=== PATIENT | female | born 1935 | race Caucasian/White ===

== ENCOUNTER → 2018-01-22 | Outpatient (CLI) | payer MEDICARE ==
[2018-01-25 00:06] LABS: Lyme Disease IgG/IgM Antibodie <0.91 ISR (0.00-0.90); Lyme Disease IgM Ab Quantitati <0.80 index (0.00-0.79)
== END ==
LOC: M WUC 14:15
DX: R21 Rash and other nonspecific skin eruption (principal)
CPT/HCPCS: 36415

== ENCOUNTER 2019-03-01 15:53 | Emergency (ER) | payer MEDICARE ==
[~2019-03-01] VITALS: Ht 160 cm; Wt 71.7 kg
[2019-03-01 16:21] LABS: BASO # 0.1 10^3/uL (0.0-0.2); EOS # 0.1 10^3/uL (0.0-0.50); EOS % 2.5 % (0.0-3.0); HEMATOCRIT 44.9 % (36.0-47.0); HEMOGLOBIN 14.7 g/dl (12.0-15.5); LYMPH # 1.8 10^3/uL (1.5-4.5); LYMPH % 34.6 % (24.0-44.0); MEAN CORPUSCULAR HEMOGLOBIN 31.9 pg (27.0-33.0); MEAN CORPUSCULAR HGB CONC 32.7 g/dl (32.0-36.5); MEAN CORPUSCULAR VOLUME 97.4 fl (80.0-96.0); MONO # 0.3 10^3/uL (0.0-0.8); MONO % 6.3 % (0.0-5.0); NEUTROPHILS # 2.8 10^3/uL (1.8-7.7); NEUTROPHILS % 55.4 % (36.0-66.0); PLATELET COUNT, AUTOMATED 193 10^3/uL (150-450); RED BLOOD COUNT 4.61 10^6/uL (4.00-5.40); WHITE BLOOD COUNT 5.1 10^3/uL (4.0-10.0)
--- NOTE | 2019-03-01 16:21 | REP ---
Clinical: Acute chest pain . Comparison: 03/12/2003 . Findings: The mediastinum and cardiac silhouette are stable and within normal limits for portable technique. The lung hinson demonstrate stable chronic changes without acute consolidation, effusion, or pneumothorax. Skeletal structures are intact. Impression: No acute cardiopulmonary process appreciated. Electronically Signed by Amor Krueger MD 03/01/2019 04:12 P
[2019-03-01 16:32] LABS: INR 0.9; PROTHROMBIN TIME 12.2 SECONDS (12.1-14.4)
[2019-03-01] MEDS ORDERED: GI COCKTAIL 50ML BTL(HYOSCYAMINE/MAALOX/LIDOCAINE VISCOUS)(1:3:1) PO ONE (17:00)
[2019-03-01 17:11] LABS: ALBUMIN 3.4 GM/DL (3.2-5.2); BILIRUBIN,DIRECT 0.1 MG/DL (0.0-0.2); BILIRUBIN,TOTAL 0.3 MG/DL (0.2-1.0); CALCIUM LEVEL 8.8 MG/DL (8.8-10.2); CREATININE FOR GFR 1.24 MG/DL (0.55-1.30); GLOMERULAR FILTRATION RATE 43.8 (>32); MB/CK RELATIVE INDEX 3.02 (< OR =4); POTASSIUM SERUM 5.4 MEQ/L (3.5-5.1); THYROID STIMULATING HORMONE 1.7 uIU/ML (0.358-3.740); TOTAL PROTEIN 6.7 GM/DL (6.4-8.2); TROPONIN I 0.14 NG/ML (< 0.10)
[2019-03-01] MEDS: NITROGLYCERIN 0.4 MG SUBL TABLET SL PRN ×3 (17:36→18:30)
[2019-03-01] MEDS ORDERED: ISOVUE-370 76% 100ML VIAL (Q9967) As Ordered ONE (17:56)
--- NOTE | 2019-03-01 18:08 | ECGEPIP ---
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
[2019-03-01] MEDS ORDERED: OMEP10CASR PO (18:16)
[2019-03-01] MEDS ORDERED: BYST10TA2 PO (18:16)
[2019-03-01] MEDS ORDERED: LOSA25TA14 PO (18:16)
[2019-03-01] MEDS ORDERED: ONDANSETRON 4MG/2ML VIAL (J2405) IV ONE (18:30)
[2019-03-01] MEDS ORDERED: MORPHINE 2 MG/ML 1ML SYRINGE (J2270) IV PRN (18:30)
[2019-03-01] MEDS ORDERED: HEPARIN SOD (PORCINE) 5000 UNITS/ML VIAL IV ONE (18:45)
[2019-03-01] MEDS ORDERED: NITROGLYCERIN 2% OINT 1 GM *U/D* PKT TOP ONE (18:45)
[2019-03-01] MEDS ORDERED: CLOPIDOGREL 300 MG TAB (PLAVIX) PO ONE (18:45)
[2019-03-01 18:46] VITALS: BP 153/88
[2019-03-01] MEDS ORDERED: HEPARIN DRIP 25,000 UNITS in APPROPRIATE DILUENT 1 EA IV SCH (18:50)
[2019-03-01 19:06] VITALS: BP 158/80
--- NOTE | 2019-03-01 19:11 | REPVR ---
EXAM: CT Angiography Chest With Contrast EXAM DATE/TIME: 03/01/2019 5:55 PM CLINICAL HISTORY: 83 years old, female; Pain; Chest pain; Additional info: Cp TECHNIQUE: Imaging protocol: Axial computed tomographic angiography images of the chest with intravenous contrast using CT angiography protocol. Coronal and sagittal reformatted images were created and reviewed. 3D rendering: MIP reconstructed images were created and reviewed. Radiation optimization: All CT scans at this facility use at least one of these dose optimization techniques: automated exposure control; mA and/or kV adjustment per patient size (includes targeted exams where dose is matched to clinical indication); or iterative reconstruction. Contrast material: ISOISOVUE 370 Contrast volume: 100 ml Contrast route: IV COMPARISON: CR PORTABLE CHEST X-RAY 03/01/2019 4:06 PM FINDINGS: Pulmonary arteries: No evidence of pulmonary emboli. Aorta: No evidence of thoracic aortic aneurysm or dissection. Lungs: There is centrilobular emphysema more severe in the upper lobes. There is a right upper lobe calcified granuloma. No consolidation. Pleural space: Normal. No pneumothorax. No pleural effusion. Heart: There is mild cardiomegaly. There are coronary artery calcifications. Lymph nodes: Unremarkable. No enlarged lymph nodes. Bones/joints: Unremarkable. No acute fracture. Soft tissues: Unremarkable. IMPRESSION: 1. No pulmonary emboli. 2. COPD. No acute findings. 3. Mild cardiomegaly and coronary artery calcifications. Electronically signed by: Nikolay Hays On 03/01/2019 19:11:37 PM
[2019-03-01 19:22] LABS: MB/CK RELATIVE INDEX 6.3 (< OR =4); TROPONIN I 0.74 NG/ML (< 0.10)
--- NOTE | 2019-03-02 21:29 | ECGEPIP ---
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
== END 2019-03-01 19:11 | disposition short-term general hospital (02) ==
LOC: M ED 15:53 → EDBD 15:53 → M ED 19:11
DX: I24.9 Acute ischemic heart disease, unspecified (principal); I10 Essential (primary) hypertension; Z79.899 Other long term (current) drug therapy
CPT/HCPCS: 71045; 71275; 80048; 80076; 82550; 82553; 83880; 84443; 84484; 85025; 85610; 93005; 93041; 94760; 96374; 96375; 96376; 99291; J2270; J2405; Q9967

== ENCOUNTER → 2019-03-25 | Outpatient (REF) | payer MEDICARE ==
[~2019-03-25] MED LIST: BYST10TA2 PO; LOSA25TA14 PO; OMEP10CASR PO
[2019-03-25 21:19] LABS: BILIRUBIN,DIRECT 0.2 MG/DL (0.0-0.2); BILIRUBIN,TOTAL 0.5 MG/DL (0.2-1.0); CALCIUM LEVEL 8.3 MG/DL (8.8-10.2); CREATININE FOR GFR 1.95 MG/DL (0.55-1.30); TOTAL PROTEIN 6.2 GM/DL (6.4-8.2)
== END ==
LOC: M LAB REF 19:40
PROVIDERS: ATTEND Nurse Practitioner
DX: R79.89 Other specified abnormal findings of blood chemistry (principal)

== ENCOUNTER → 2019-04-10 | Outpatient (REF) | payer MEDICARE ==
[2019-04-10 14:31] LABS: FERRITIN 396 NG/ML (8-252); FOLATE > 24.0 NG/ML; IRON (FE) 52 UG/DL (50-170); PERCENT SATURATION 16.4 % (13.2-45.0); TOTAL IRON BINDING CAPACITY 318 UG/DL (250-450); VITAMIN B12 LEVEL 459 PG/ML
== END ==
LOC: M LAB REF 13:16
PROVIDERS: ATTEND Internal Medicine Nephrology
DX: D64.9 Anemia, unspecified (principal)

== ENCOUNTER → 2019-06-15 | Outpatient (CLI) | payer MEDICARE ==
[2019-06-15 13:16] LABS: BASO # 0.1 10^3/uL (0.0-0.2); BASO % 0.3 % (0.0-1.0); EOS # 0.1 10^3/uL (0.0-0.50); EOS % 0.5 % (0.0-3.0); HEMATOCRIT 44.8 % (36.0-47.0); HEMOGLOBIN 14.5 g/dl (12.0-15.5); LYMPH # 2.5 10^3/uL (1.5-4.5); MEAN CORPUSCULAR HEMOGLOBIN 29.2 pg (27.0-33.0); MEAN CORPUSCULAR HGB CONC 32.4 g/dl (32.0-36.5); MEAN CORPUSCULAR VOLUME 90.3 fl (80.0-96.0); MONO % 6.8 % (0.0-5.0); PLATELET COUNT, AUTOMATED 264 10^3/uL (150-450); RED BLOOD COUNT 4.96 10^6/uL (4.00-5.40); WHITE BLOOD COUNT 14.7 10^3/uL (4.0-10.0)
[2019-06-15 13:54] LABS: ALBUMIN 4.2 GM/DL (3.2-5.2); BILIRUBIN,TOTAL 0.7 MG/DL (0.2-1.0); CREATININE FOR GFR 2.09 MG/DL (0.55-1.30); POTASSIUM SERUM 4.2 MEQ/L (3.5-5.1); TOTAL PROTEIN 8.2 GM/DL (6.4-8.2)
== END ==
LOC: M WUC 10:47
PROVIDERS: ATTEND Physician Assistant
DX: A09 Infectious gastroenteritis and colitis, unspecified (principal)

== ENCOUNTER 2020-01-24 22:25 | Emergency (ER) | payer MEDICARE ==
[~2020-01-24] VITALS: Ht 160 cm; Wt 61.1 kg
[2020-01-24 22:27] VITALS: BP 162/80
[2020-01-24] MEDS ORDERED: CLOP75TA2 (22:36)
[2020-01-24] MEDS ORDERED: SUCR1TAB56 (22:36)
[2020-01-24] MEDS ORDERED: AMLO2.5T3 (22:36)
[2020-01-24] MEDS ORDERED: BUSP5TA (22:36)
[2020-01-24] MEDS ORDERED: FURO40TA2 (22:36)
[2020-01-24] MEDS ORDERED: ATOR40TA75 (22:36)
[2020-01-24] MEDS ORDERED: PANT40TA3 (22:36)
[2020-01-24] MEDS ORDERED: ESTRADIOL (22:36)
[2020-01-24] MEDS ORDERED: POTA1TAB23 (22:36)
[2020-01-24] MEDS ORDERED: METO1TAB87 (22:36)
[2020-01-24] MEDS ORDERED: MIRA3350 PO (23:23)
[2020-01-24] MEDS ORDERED: MIRALAX *UNIT DOSE* 17GM PACKET PO STA (23:35)
== END 2020-01-24 23:51 | disposition home or self-care (01) ==
LOC: M ED 22:25
DX: K56.41 Fecal impaction (principal); I10 Essential (primary) hypertension; J44.9 Chronic obstructive pulmonary disease, unspecified; Z79.899 Other long term (current) drug therapy; Z87.891 Personal history of nicotine dependence

== ENCOUNTER 2020-04-11 03:50 | Inpatient (IN) | payer MEDICARE ==
[~2020-04-11] VITALS: Ht 160 cm; Wt 67.7 kg
[~2020-04-11 03:50] MED LIST changes: +AMLO2.5T3 PO; +ATOR40TA75 PO; +BUSP5TA PO; +CLOP75TA2 PO; +ESTRADIOL; +FURO40TA2 PO; +METO1TAB87; +MIRA3350 PO; +PANT40TA3 PO; +POTA1TAB23 PO; +SUCR1TAB56 PO
[2020-04-11] MEDS ORDERED: METOCLOPRAMIDE INJ 10MG/2ML VIAL (J2765 PER 1) IV ONE (05:15)
[2020-04-11] MEDS ORDERED: MORPHINE 4 MG/ML 1ML VIAL/SYRINGE (J2270) IV ONE ×2 (05:15→06:00)
[2020-04-11] MEDS ORDERED: NS 500 ML IV ONE ×2 (05:15→06:15)
[2020-04-11 05:29] LABS: HEMATOCRIT 38.4 % (36.0-47.0); HEMOGLOBIN 13.4 g/dl (12.0-15.5); MEAN CORPUSCULAR HEMOGLOBIN 30.4 pg (27.0-33.0); MEAN CORPUSCULAR HGB CONC 34.9 g/dl (32.0-36.5); MEAN CORPUSCULAR VOLUME 87.1 fl (80.0-96.0); PLATELET COUNT, AUTOMATED 198 10^3/uL (150-450); RED BLOOD COUNT 4.41 10^6/uL (4.00-5.40); WHITE BLOOD COUNT 6.5 10^3/uL (4.0-10.0)
[2020-04-11 05:40] LABS: BASOPHILS 1 % (0-1); EOSINOPHILS 4 % (0-3); LYMPHOCYTES 15 % (16-44); MONOCYTES 6 % (0-5); NEUTROPHILS 74 % (28-66); PLATELET ESTIMATE NORMAL (NORMAL)
[2020-04-11 05:41] LABS: ANISOCYTOSIS 1+; POLYCHROMASIA 1+
--- NOTE | 2020-04-11 05:55 | REPVR ---
PROCEDURE INFORMATION: Exam: CT Abdomen And Pelvis Without Contrast Exam date and time: 04/11/2020 5:28 AM Age: 84 years old Clinical indication: Abdominal pain; Additional info: R colic TECHNIQUE: Imaging protocol: Computed tomography of the abdomen and pelvis without contrast. Radiation optimization: All CT scans at this facility use at least one of these dose optimization techniques: automated exposure control; mA and/or kV adjustment per patient size (includes targeted exams where dose is matched to clinical indication); or iterative reconstruction. COMPARISON: No relevant prior studies available. FINDINGS: Heart: There is calcification the mitral annulus. Lungs: There is a 9 mm nodule in the left lung base on axial image 20. Another nodule measuring 4-5 mm seen in the left lung base on axial image 20. There is a 5 mm right lower lobe lung nodule on axial image 3. Changes seen in the right and left lung bases suggestive of chronic interstitial lung changes. Liver: The liver is nodular in contour. The liver is studded with innumerable hypodense masses. Gallbladder and bile ducts: The patient is status post cholecystectomy. Pancreas: Normal. No ductal dilation. Spleen: Normal. No splenomegaly. Adrenals: Normal. No mass. Kidneys and ureters: Multiple right renal stones seen the largest measures around 3-4 mm. There is no ureteral stones or hydronephrosis. Stomach and bowel: There is severe sigmoid colon diverticulosis. Appendix: No evidence of appendicitis. Intraperitoneal space: Unremarkable. No free air. No significant fluid collection. Vasculature: There is severe calcification of the coronary arteries. There is severe aortic and iliac mural calcifications. Lymph nodes: Unremarkable. No enlarged lymph nodes. Bladder: Unremarkable as visualized. Reproductive: The patient is status post hysterectomy. There is no adnexal mass. Bones/joints: There is lumbar spine scoliosis with diffuse disc degenerative changes. Soft tissues: Unremarkable. IMPRESSION: 1. Liver studded with diffuse innumerable hypodense masses suggestive of metastatic disease. Alternatively multifocal primary hepatic neoplasm can have a similar appearance. Nodular hepatic contour could be due to the underlying neoplastic processes or due to an element of cirrhosis. 2. Nonobstructing right nephrolithiasis. 3. Severe sigmoid colon diverticulosis. 4. Right and left lower lobe lung nodules as described above the largest measuring 9 mm in the left lung base likely metastatic. 5. Chronic interstitial lung changes in the partially imaged lung bases. Electronically signed by: Dajuan Dobson On 04/11/2020 05:54:46 AM
[2020-04-11 05:58] LABS: ALBUMIN 3.2 GM/DL (3.2-5.2); ALT/SGPT 56 U/L (12-78); BILIRUBIN,DIRECT 0.6 MG/DL (0.0-0.2); BLOOD UREA NITROGEN 15 MG/DL (7-18); CALCIUM LEVEL 8.3 MG/DL (8.8-10.2); CARBON DIOXIDE LEVEL 23 MEQ/L (21-32); CHLORIDE LEVEL 86 MEQ/L (98-107); CREATININE FOR GFR 0.94 MG/DL (0.55-1.30); GLOMERULAR FILTRATION RATE > 60.0 (>32); GLUCOSE, FASTING 91 MG/DL (70-100); LIPASE 506 U/L (73-393); POTASSIUM SERUM 3.7 MEQ/L (3.5-5.1); SODIUM LEVEL 120 MEQ/L (136-145)
[2020-04-11] MEDS ORDERED: ESTR1TAB PO (06:36)
[2020-04-11] MEDS ORDERED: METO1TAB7 PO (06:36)
[2020-04-11] MEDS ORDERED: MIRA3350 PO (06:37)
[2020-04-11] MEDS ORDERED: METOCLOPRAMIDE INJ 10MG/2ML VIAL (J2765 PER 1) IV PRN (08:00)
[2020-04-11] MEDS: ONDANSETRON 4MG/2ML VIAL IV PRN ×4 (08:00→22:19)
[2020-04-11] MEDS: NS 1,000 ML IV SCH ×2 (08:00→20:08)
[2020-04-11 08:07] LABS: APPEARANCE, URINE CLEAR (CLEAR); BACTERIA, URINE AUTO 1+ (NEGATIVE); BILIRUBIN, URINE AUTO NEGATIVE (NEGATIVE); BLOOD, URINE BLOOD NEGATIVE (NEGATIVE); COLOR, URINE YELLOW (YELLOW); GLUCOSE, URINE (UA) AUTO NEGATIVE (NEGATIVE); KETONE, URINE AUTO TRACE mg/dL (NEGATIVE); LEUKOCYTE ESTERASE, URINE AUTO NEGATIVE (NEGATIVE); NITRITE, URINE AUTO NEGATIVE (NEGATIVE); PROTEIN, URINE AUTO 1+ mg/dL (NEGATIVE); RBC, URINE AUTO 1 /HPF (0-3); SQUAMOUS EPITHELIAL CELL UR AU 1 /HPF (0-6); UROBILINOGEN, URINE AUTO 0.2 mg/dL (0.0-2.0); WBC, URINE AUTO 1 /HPF (0-3)
[2020-04-11] MEDS ORDERED: LOSARTAN 25 MG TAB PO SCH (09:00)
[2020-04-11] MEDS ORDERED: NEBIVOLOL 5 MG TAB (BYSTOLIC) PO SCH (09:00)
[2020-04-11] MEDS: MORPHINE 4 MG/ML 1ML VIAL/SYRINGE (J2270) IV PRN ×2 (09:45→17:46)
--- NOTE | 2020-04-11 09:48 | REP ---
PORTABLE CHEST X-RAY: SINGLE VIEW. HISTORY: Preadmission chest x-ray. COMPARISON CHEST X-RAY: March 01, 2019 FINDINGS: In the interval since the prior study, the patient has undergone median sternotomy. Monitoring electrodes are present along with oxygen delivery tubing. There is a mild interstitial fibrosis pattern seen in the left base and right mid lung zone, essentially unchanged. No acute infiltrate is seen. No pleural effusion is noted. IMPRESSION: Mildly prominent interstitial markings. Prior sternotomy. Otherwise no acute disease. Electronically Signed by Hero Butterfield MD 04/11/2020 10:25 A
--- NOTE | 2020-04-11 09:58 | HPEPDOC ---
General Date of Admission April 11, 2020 at 07:47 Date of Service: April 11, 2020 Chief Complaint The patient is a 84-year-old female admitted with a reason for visit of Hyponatremia,Intractable Vomiting. Source: Patient Exam Limitations: No limitations Timing/Duration: Other (unsure) Severity: Other (not applicable) Associated Symptoms: Other (, weight loss) History of Present Illness This is a 84 years old white female with past medical history of hypertension, back pain, has developed persistent vomiting since last night, unable to keep anything down and she came to ER for for further workup. On further interview, patient also claims that she lost 8-10 pounds in last month and has not been feeling well, generalized tiredness and fatigue and malaise since last few months. Denies any chest pain, abdominal pain, diarrhea, fever, etc. Home Medications Scheduled Amlodipine Besylate (Amlodipine Besylate) 2.5 Mg Tablet, 2.5 MG PO QHS, (Reported) Atorvastatin Calcium (Atorvastatin Calcium) 40 Mg Tablet, 40 MG PO DAILY, (Reported) Buspirone HCl (Buspirone HCl) 5 Mg Tablet, 5 MG PO BID, (Reported) Clopidogrel Bisulfate (Clopidogrel) 75 Mg Tablet, 75 MG PO DAILY, (Reported) Estradiol (Estradiol) 1 Mg Tablet, 0.5 MG PO DAILY, (Reported) Furosemide (Furosemide) 40 Mg Tablet, 40 MG PO DAILY, (Reported) Losartan Potassium (Losartan Potassium) 25 Mg Tab, 25 MG PO DAILY, (Reported) Metoprolol Succinate (Metoprolol Succinate) 50 Mg Tab.er.24h, 50 MG PO DAILY, (Reported) Nebivolol HCl (Bystolic) 10 Mg Tab, 10 MG PO DAILY, (Reported) LAST FILL 2019 Omeprazole (Omeprazole) 10 Mg Capcr, 10 MG PO DAILY, (Reported) LAST FILL 2019 Pantoprazole Sodium (Pantoprazole Sodium) 40 Mg Tablet.dr, 40 MG PO DAILY, (Reported) LAST FILLED 11/2019 Potassium Chloride (Potassium Chloride) 10 Meq Tablet.er, 10 MEQ PO BID, (Reported) Sucralfate (Sucralfate) 1 Gm Tablet, 1 GM PO BID, (Reported) Scheduled PRN Polyethylene Glycol 3350 (Miralax) 119 Gm Powder, 17 GM PO DAILY PRN for CONSTIPATION, (Reported) Allergies Coded Allergies: No Known Allergies (Verified , 03/01/19) Past Medical History Medical History Hypertension, back pain Surgical History Hysterectomy with BSO, cholecystectomy, trigger finger release, sinus surgery, D&C, , cardiac ablation, rotator cuff repair Family History Father at age of 54 with a throat cancer. Mother age of 84 with CVA, hypertension, CA and diabetes mellitus, one sister has breast cancer and she at the age of 78 Social History * Smoker: former Smoker Alcohol: Denies Drugs: denies A-FIB/CHADSVASC A-FIB History Current/History of A-Fib/PAF?: No Review of Systems Constitutional: Reports: Weakness, Fatigue, Other (, weight loss) Eyes: Denies: Pain, Vision change, Conjunctivae inflammation, Eyelid inflammation, Redness, Other ENT: Denies: Head Aches, Ear Pain, Dysphagia, Sinus Congestion, Post Nasal Drip, Sore Throat, Epistaxis, Other Symptoms Skin: Denies: Rash, Lesions, Jaundice, Bruising, Itching, Dry, Breakdown, Nail Changes, Other Pulmonary: Denies: Dyspnea, Cough, Pleuritic Chest Pain, Other Symptoms Cardiovascular: Denies: Chest Pain, Palpitations, Orthopnea, Paroxysmal Noc. Dyspnea, Edema, Lt Headedness, Other Symptoms Gastrointestinal: Reports: Vomiting Genitourinary: Denies: Dysuria, Frequency, Incontinence, Hematuria, Retention, Other Symptoms Hematologic: Denies: Bruising, Bleeding Excessively, Petecchia, Purpura, Enlarged Lymph Nodes, Other Hematologic Endocrine: Denies: Polydipsia, Polyphagia, Polyuria, Heat Intolerance, Cold Intolerance, Other Endocrine Sx Musculoskeletal: Denies: Neck Pain, Back Pain, Shoulder Pain, Arm Pain, Hand Pain, Leg Pain, Foot Pain, Joint Pain, Muscle Pain, Spasms, Other Symptoms Neurological: Denies: Weakness, Numbness, Incoordination, Change in speech, C onfusion, Seizures, Other Symptoms Psych: Denies: Mood Normal, Anxiety, Depression, Memory Issues, Thoughts of Self Harm, Anger, Thoughts of Harming Other, Other Psych Physical Examination General Exam: Positive: Alert, Cooperative Eye Exam: Positive: PERRLA, Conjunctiva & lids normal ENT Exam: Positive: Atraumatic, Mucous membr. moist/pink Neck Exam: Positive: Supple Chest Exam: Positive: Clear to auscultation, Normal air movement Heart Exam: Positive: Rate Normal, Normal S1, Normal S2 Abdomen Exam: Positive: Normal bowel sounds Extremity Exam: Positive: Normal pulses Skin Exam: Positive: Nl turgor and temperature Neuro Exam: Positive: Strength at 5/5 X4 ext, Cranial Nerves 3-12 NL Psych Exam: Positive: Mood NL, Oriented x 3 Vital Signs Vital Signs Date Time Temp Pulse Resp B/P (MAP) Pulse Ox O2 Delivery O2 Flow Rate FiO2 04/11/20 09:15 75 20 135/68 (90) 99 Nasal Cannula 2.0 04/11/20 04:01 96.7 Laboratory Data Labs 24H Laboratory Tests 2 04/11/20 05:17: Neutrophils (%) (Auto) , Nucleated Red Blood Cells % (auto) 0.0, Neutrophils 74H, Lymphocytes (Manual) 15L, Monocytes (Manual) 6H, Eosinophils (Manual) 4H, Basophils (Manual) 1, Polychromasia 1+, Anisocytosis 1+, Platelet Estimate NORMAL, Anion Gap 11, Glomerular Filtration Rate > 60.0, Calcium Level 8.3L, Total Bilirubin 1.0, Direct Bilirubin 0.6H, Aspartate Amino Transf (AST/SGOT) 81H, Alanine Aminotransferase (ALT/SGPT) 56, Alkaline Phosphatase 258H, Total Protein 7.0, Albumin 3.2, Albumin/Globulin Ratio 0.8L, Lipase 506H 04/11/20 07:52: Urine Color YELLOW, Urine Appearance CLEAR, Urine pH 7.0, Urine Specific [place] 1.010, Urine Protein 1+H, Urine Glucose (Auto)(UA) NEGATIVE, Urine Ketones (Auto) TRACEH, Urine Blood NEGATIVE, Urine Nitrite NEGATIVE, Urine Bilirubin NEGATIVE, Urine Urobilinogen 0.2, Urine Leukocyte Esterase (Auto) NEGATIVE, Urine WBC (Auto) 1, Urine RBC (Auto) 1, Urine Hyaline Casts (Auto) 0, Urine Bacteria (Auto) 1+H, Urine Squamous Epithelial Cells 1, Urine Sperm (Auto) CBC/BMP Laboratory Tests 04/11/20 05:17 Problems (1) Metastatic neoplastic disease Status: Acute Problem Text: 74 years old white female past medical history of hypertension, arthritis, presented with chief complaint of a persistent vomiting since last night but patient has also explained that she lost 8-10 pounds in last 1 month and feeling tired, fatigue. CT of the abdomen and pelvis shows liver studded with innumerable hypodense masses, most likely metastatic liver disease. Also, lung metastases were observed. Patient also has a nonobstructing right kidney stones CBC shows hemoglobin of 13.4, WBC, platelets are normal. Sodium is low with 120, BUN 15, creatinine 0.94, but all other electrolytes are normal. ALP 258 and lipase 506 Admit patient to [facility] floor with telemetry IV fluid normal saline at 70 mL per hour Metoclopramide and Zofran when necessary for nausea, vomiting Morphine sulfate for pain management Continue all home meds except Lasix IR consult called for possible liver biopsy to establish origin of the tissue made versus multifocal hepatic carcinoma . We will also request an oncology consult with Dr. 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 Patient is nothing by mouth (3) HTN (hypertension) Status: Chronic Problem Text: Continue all home meds except Lasix Keep in close eye on vital signs and adjust meds accordingly Plan / VTE VTE Prophylaxis Ordered?: Yes BETH FLORES MD April 11, 2020 09:58
[2020-04-11 10:35] VITALS: BP 116/82
[2020-04-11] MEDS: POTASSIUM CHLORIDE 10 MEQ SR TABLET PO SCH ×2 (10:59→20:51)
[2020-04-11] MEDS: ATORVASTATIN 20 MG TAB PO SCH (10:59)
[2020-04-11] MEDS: PANTOPRAZOLE 40MG TAB (PROTONIX) PO SCH (10:59)
[2020-04-11] MEDS: CLOPIDOGREL 75 MG TAB PO SCH ×2 (10:59→11:00)
[2020-04-11] MEDS: SUCRALFATE 1 GM TAB PO SCH ×2 (10:59→20:51)
[2020-04-11] MEDS: ESTRADIOL PO SCH (12:51)
[2020-04-11] MEDS: busPIRone 5 MG TAB PO SCH ×2 (12:51→20:51)
[2020-04-11] MEDS: METOPROLOL SUCC (TopROL XL) 50MG **XL** TAB PO SCH (12:53)
[2020-04-11 14:00] VITALS: BP 120/80
[2020-04-11] MEDS ORDERED: LIDOCAINE 1% MDV 20ML VIAL As Ordered ONE (14:23)
[2020-04-11] MEDS ORDERED: ALPRAZolam 0.25 MG TAB PO ONE (14:30)
[2020-04-11 15:45] VITALS: BP 125/83
[2020-04-11 16:30] VITALS: BP 130/82
[2020-04-11 17:00] VITALS: BP 127/78
[2020-04-11] MEDS: ACETAMINOPHEN TAB 650MG DOSE (2X325MG) PO PRN (17:12)
--- NOTE | 2020-04-11 19:15 | REP ---
ULTRASOUND-GUIDED LIVER BIOPSY The procedure was performed under the direct supervision of Dr. Rosa. The patient has a history of diffuse innumerable hypodense masses suggestive of metastatic disease seen on a previous CT scan performed earlier today. The risks and benefits of the procedure were explained to the patient and informed consent was obtained. A lesion in the left lobe of the liver was localized using ultrasound guidance. The skin was prepped and draped in a sterile fashion. 1% lidocaine was used as a local anesthetic. Using ultrasound guidance and 19/20 gauge coaxial needle biopsy system was inserted and advanced into the lesion. Six core biopsy samples were obtained and sent to lab. The patient tolerated the procedure well and there were no immediate complications. After the appropriate amount of monitored convalescence the patient was discharged from the department. Electronically Signed by GRUPO Gaston 04/11/2020 05:42 P Electronically Signed by Atul Rosa MD 04/11/2020 07:05 P
--- NOTE | 2020-04-11 20:23 | CR.PDOC ---
General Date of Consultation: April 11, 2020 Referring Provider: BETH FLORES MD Attending Physician: BETH FLORES MD Consultation DIAGNOSIS: 1. Liver masses - CT abd/pelvis wo contrast, 04/11/20: Liver studded with diffuse innumerable hypodense masses suggestive of metastatic disease. Nonobstructing right nephrolithiasis. Severe sigmoid colon diverticulosis. Right and left lower lobe lung nodules with the largest measuring 9 mm in the left lung base. Chronic interstitial lung changes in the partially imaged lung bases. REASON FOR CONSULTATION/CHIEF COMPLAINT: Liver metastasis HISTORY OF PRESENT ILLNESS: Ms. Saavedra is a pleasant 84-year-old female who presented to [facility] emergency department earlier today with worsening right upper mauro drant abdominal pain. The patient has a history of nephrolithiasis and I believe was to come in this Saturday, 04/15 for lithotripsy. She thought abdominal pain is secondary to her kidney stone. She has had vomiting since last night. Though she reported an 8-10 pound weight loss in the last month to Dr. Flores, she denies weight loss to me. She states her appetite is the same. She has been having a little nausea and vomiting. She denies bright red blood per rectum, melena, or hematuria. She states she had a colonoscopy about 1-2 years ago underwent which was within normal limits. She states she is up-to-date with regards to her mammogram. She denies confusion or seizure activity. However, upon talking about CT abdomen/pelvis results, she acts as though she is unaware of the results. The patient's daughter and son were called later after visiting with the patient. They do note there mother has been more forgetful recently. ALLERGIES: Please see below. HOME MEDICATIONS: Please see below. PAST MEDICAL HISTORY: 1. Hypertension 2. Chronic lower back pain PAST SURGICAL HISTORY: Per chart review: 1. Hysterectomy with bilateral salpingo-oophorectomy 2. Cholecystectomy 3. Trigger finger release 4. Sinus surgery 5. D&C 6. 7. Cardiac ablation 8. Rotator cuff repair FAMILY HISTORY: Per chart review: Father: at age 54 with throat cancer Mother: at age 84 with CVA. Also treated for hypertension, myocardial infarction, and diabetes mellitus. Siblings: One sister had breast cancer and at the age of 78. SOCIAL HISTORY: Marital status and/or living arrangements: She lives alone but has a daughter and son that live in [place], [place]. Leeann can be reached at [phone]. Tobacco use: She quit smoking over 20 years ago. She previously smoked for 15-16 years. ETOH: Denies Illicit drug use: Denies IV drug use: Denies REVIEW OF SYSTEMS: Constitutional: Reports: Weakness, Fatigue, denies weight loss Eyes: Denies: Pain, Vision change, Conjunctivae inflammation, Eyelid inflammation, Redness, Other ENT: Denies: Head Aches, Ear Pain, Dysphagia, Sinus Congestion, Post Nasal Drip, Sore Throat, Epistaxis, Other Symptoms Skin: Denies: Rash, Lesions, Jaundice, Bruising, Itching, Dry, Breakdown, Nail Changes, Other Pulmonary: Denies: Dyspnea, Cough, Pleuritic Chest Pain, Other Symptoms Cardiovascular: Denies: Chest Pain, Palpitations, Orthopnea, Paroxysmal Noc. Dyspnea, Edema, Lt Headedness, Other Symptoms Gastrointestinal: Reports: Vomiting Genitourinary: Denies: Dysuria, Frequency, Incontinence, Hematuria, Retention, Other Symptoms Hematologic: Denies: Bruising, Bleeding Excessively, Petecchia, Purpura, Enlarged Lymph Nodes, Other Hematologic Endocrine: Denies: Polydipsia, Polyphagia, Polyuria, Heat Intolerance, Cold Intolerance, Other Endocrine Sx Musculoskeletal: Denies: Neck Pain, Back Pain, Shoulder Pain, Arm Pain, Hand Pain, Leg Pain, Foot Pain, Joint Pain, Muscle Pain, Spasms, Other Symptoms Neurological: Denies: Weakness, Numbness, Incoordination, Change in speech, Confusion, Seizures, Other Symptoms Psych: Denies: Mood Normal, Anxiety, Depression, Memory Issues, Thoughts of Self Harm, Anger, Thoughts of Harming Other, Other Psych PHYSICAL EXAMINATION: VITAL SIGNS: Please see below. GENERAL APPEARANCE: Alert, cooperative, thin female HEENT: Extraocular muscles intact. Conjunctivae and lids normal. RESPIRATORY: The auscultation bilaterally with no increased work of breathing CARDIOVASCULAR: Regular rate and rhythm with normal S1 and S2 ABDOMEN: Tenderness to palpation in right upper quadrant. No rebound or guardin g. Normoactive bowel sounds EXTREMITIES: Cyanosis, clubbing, or edema NEUROLOGICAL: Alert and oriented to person, place, and time. Cranial nerves grossly intact PSYCHIATRIC: Normal mood LABORATORY DATA: Please see below. ASSESSMENT/PLAN: 1. Liver masses: Laboratory data and imaging were reviewed in detail with the patient. This was also reviewed with the patient's children later on during the day. The patient is noted to have CT imaging which shows innumerable liver masses. These are concerning for metastatic disease. She is to undergo biopsy of one of these liver lesions later today. We will partially complete staging with CT scan of the chest without contrast for further evaluation of chest area. Review of lab work does show mild elevation in the direct bilirubin and AST. Alkaline phosphatase is also elevated at 258. This is all likely sequelae of liver masses. I will check tumor markers including CEA and AFP at this time. We will await biopsy results. This is a difficult situation as the patient is elderly and does have some element of dementia. I did discuss with the patient's children that biopsy results will help guide treatment recommendations. I did explain to them that this is likely poor prognosis given concerned that the cancer is likely spread to the liver. Furthermore, if hyponatremia is a paraneoplastic finding that also likely indicates poor prognosis. Finally, treatment options would be limited given the patient's advanced age. The patient's children voiced understanding. We will await further results to have discussion with regards to this. 2. Hyponatremia: The patient remains on IV hydration. Sodium will be monitored per primary team. Hyponatremia could be secondary to malignancy. There is no evidence of volume depletion or volume overload that could lead to hyponatremia. Thank you so very much for this consult. Please call with further questions. Vital Signs/I&O Vital Signs Date Time Temp Pulse Resp B/P (MAP) Pulse Ox O2 Delivery O2 Flow Rate FiO2 04/11/20 17:56 17 Room Air 04/11/20 17:00 97.8 75 127/78 (94) 93 1.0 Laboratory Data Labs 24H Laboratory Tests 2 04/11/20 05:17: Neutrophils (%) (Auto) , Nucleated Red Blood Cells % (auto) 0.0, Neutrophils 74H, Lymphocytes (Manual) 15L, Monocytes (Manual) 6H, Eosinophils (Manual) 4H, Basophils (Manual) 1, Polychromasia 1+, Anisocytosis 1+, Platelet Estimate NORMAL, Anion Gap 11, Glomerular Filtration Rate > 60.0, Calcium Level 8.3L, Total Bilirubin 1.0, Direct Bilirubin 0.6H, Aspartate Amino Transf (AST/SGOT) 81H, Alanine Aminotransferase (ALT/SGPT) 56, Alkaline Phosphatase 258H, Total Protein 7.0, Albumin 3.2, Albumin/Globulin Ratio 0.8L, Lipase 506H 04/11/20 07:52: Urine Color YELLOW, Urine Appearance CLEAR, Urine pH 7.0, Urine Specific [place] 1.010, Urine Protein 1+H, Urine Glucose (Auto)(UA) NEGATIVE, Urine Ketones (Auto) TRACEH, Urine Blood NEGATIVE, Urine Nitrite NEGATIVE, Urine Bilirubin NEGATIVE, Urine Urobilinogen 0.2, Urine Leukocyte Esterase (Auto) NEGATIVE, Urine WBC (Auto) 1, Urine RBC (Auto) 1, Urine Hyaline Casts (Auto) 0, Urine Bacteria (Auto) 1+H, Urine Squamous Epithelial Cells 1, Urine Sperm (Auto) CBC/BMP Laboratory Tests 04/11/20 05:17 Allergies Coded Allergies: No Known Allergies (Verified , 03/01/19) Home Medications Scheduled Amlodipine Besylate (Amlodipine Besylate) 2.5 Mg Tablet, 2.5 MG PO QHS, (Repor blaise) Atorvastatin Calcium (Atorvastatin Calcium) 40 Mg Tablet, 40 MG PO DAILY, (Reported) Buspirone HCl (Buspirone HCl) 5 Mg Tablet, 5 MG PO BID, (Reported) Clopidogrel Bisulfate (Clopidogrel) 75 Mg Tablet, 75 MG PO DAILY, (Reported) Estradiol (Estradiol) 1 Mg Tablet, 0.5 MG PO DAILY, (Reported) Furosemide (Furosemide) 40 Mg Tablet, 40 MG PO DAILY, (Reported) Losartan Potassium (Losartan Potassium) 25 Mg Tab, 25 MG PO DAILY, (Reported) Metoprolol Succinate (Metoprolol Succinate) 50 Mg Tab.er.24h, 50 MG PO DAILY, (Reported) Pantoprazole Sodium (Pantoprazole Sodium) 40 Mg Tablet.dr, 40 MG PO DAILY, (Reported) LAST FILLED 11/2019 Potassium Chloride (Potassium Chloride) 10 Meq Tablet.er, 10 MEQ PO BID, (Reported) Sucralfate (Sucralfate) 1 Gm Tablet, 1 GM PO BID, (Reported) Scheduled PRN Polyethylene Glycol 3350 (Miralax) 119 Gm Powder, 17 GM PO DAILY PRN for CONSTIPATION, (Reported) HILLARY LAMB MD April 11, 2020 20:23
[2020-04-11 22:00] VITALS: BP 148/72
[2020-04-12 06:00] VITALS: BP 140/76
[2020-04-12 06:35] LABS: MEAN CORPUSCULAR HEMOGLOBIN 30.4 pg (27.0-33.0); MEAN CORPUSCULAR HGB CONC 34.5 g/dl (32.0-36.5); MEAN CORPUSCULAR VOLUME 88.1 fl (80.0-96.0); PLATELET COUNT, AUTOMATED 204 10^3/uL (150-450); RED BLOOD COUNT 3.29 10^6/uL (4.00-5.40); WHITE BLOOD COUNT 7.7 10^3/uL (4.0-10.0)
[2020-04-12 07:03] LABS: ALBUMIN 2.8 GM/DL (3.2-5.2); BILIRUBIN,TOTAL 0.7 MG/DL (0.2-1.0); CREATININE FOR GFR 1.06 MG/DL (0.55-1.30); GLOMERULAR FILTRATION RATE 52.3 (>32); MAGNESIUM LEVEL 1.5 MG/DL (1.8-2.4); POTASSIUM SERUM 4.4 MEQ/L (3.5-5.1); TOTAL PROTEIN 5.7 GM/DL (6.4-8.2)
[2020-04-12] MEDS: SUCRALFATE 1 GM TAB PO SCH ×2 (08:23→20:41)
[2020-04-12] MEDS: MAGNESIUM OXIDE 400 MG TAB (MAG-OX) PO SCH ×2 (08:23→20:41)
[2020-04-12] MEDS: busPIRone 5 MG TAB PO SCH ×2 (08:23→20:41)
[2020-04-12] MEDS: POTASSIUM CHLORIDE 10 MEQ SR TABLET PO SCH ×2 (08:23→20:41)
[2020-04-12] MEDS: ATORVASTATIN 20 MG TAB PO SCH (08:26)
[2020-04-12] MEDS: ESTRADIOL PO SCH (08:26)
[2020-04-12] MEDS: PANTOPRAZOLE 40MG TAB (PROTONIX) PO SCH (08:27)
[2020-04-12] MEDS: METOPROLOL SUCC (TopROL XL) 50MG **XL** TAB PO SCH (08:27)
[2020-04-12] MEDS ORDERED: MAG SULF 1GM/100ML (MAG RUN) 1 GM in IV 1 EA IV ONE (08:30)
--- NOTE | 2020-04-12 10:17 | REP ---
CT CHEST WITHOUT CONTRAST: COMPARISON: 03/11/2019. CT chest performed without IV contrast. Sagittal and coronal reconstruction images are performed. In the anterior segment of the right upper lobe, there is a lobulated irregular oval soft tissue mass measuring 3.8 x 2.0 cm. There appear to be small surrounding satellite nodules in the adjacent lung. There is a 4 mm nodule in the superior segment of the right lower lobe. Inferior to the mass, there are three subcentimeter nodules along the anterior superior minor fissure in the upper lobe. A 4 mm nodule is seen in the right middle lobe posterolaterally. A nodule is seen in the left lower lobe behind the descending thoracic aorta 1.4 cm in diameter. More inferiorly, there is a 9 mm nodule in the posterior left lower lobe and a smaller nodule laterally in the left lower lobe. The lungs also demonstrate moderate emphysematous and fibrotic changes. There is a tiny calcified granuloma in the right upper lobe superiorly. Mediastinal adenopathy is present. A prominent enlarged lymph node in the pretracheal region measures 2.1 cm in diameter. Just inferior to that in the precarinal region, there is a lymph node measuring 2.6 x 2.1 cm. There are surrounding smaller lymph nodes in the mediastinum and subcarinal regions. I suspect a right hilar adenopathy although this is not well defined due to lack of IV contrast. There is no pleural or pericardial effusion. The heart is enlarged. There is calcification of the thoracic aorta with ectasia of the ascending thoracic aorta up to 4.4 cm in AP dimension. There are diffuse degenerative changes of the spine. In the upper abdomen, note is again made of multiple innumerable liver metastases. IMPRESSION: Multiple lung nodules as discussed in detail above. A dominant oval lobulated irregular nodular soft tissue density is seen in the anterior segment of the right upper lobe measuring 3.8 x 2.0 cm. Mediastinal and right hilar adenopathy. Diffuse liver metastases. Electronically Signed by Atul Rosa MD 04/12/2020 12:16 P
[2020-04-12] MEDS: MORPHINE 4 MG/ML 1ML VIAL/SYRINGE (J2270) IV PRN ×2 (12:39→23:44)
[2020-04-12 14:00] VITALS: BP 127/71
--- NOTE | 2020-04-12 17:44 | IPNPDOC ---
Date Seen The patient was seen on 04/12/20. Progress Note 1. Liver masses - CT abd/pelvis wo contrast, 04/11/20: Liver studded with diffuse innumerable hypodense masses suggestive of metastatic disease. Nonobstructing right nephrolithiasis. Severe sigmoid colon diverticulosis. Right and left lower lobe lung nodules with the largest measuring 9 mm in the left lung base. Chronic interstitial lung changes in the partially imaged lung bases. - Biopsy of liver mass, 04/11/20: Pathology pending - CEA, 04/11/20: Elevated at 533 - CT chest without contrast, 04/12/20: Multiple lung nodules are noted. A dominant lobulated irregular nodule or soft tissue density is seen in the anterior segment of the right upper lobe measuring 3.8 x 2 cm. Mediastinal adenopathy and right hilar is present. Diffuse liver metastasis noted. SUBJECTIVE: Patient is an 84-year-old female presented with worsening abdominal pain. CT imaging was performed and showed multiple liver masses concerning for cancer. The patient did have biopsy yesterday and tolerated that well. She does continue to have right upper quadrant abdominal pain. She is tolerating her diet. OBJECTIVE PHYSICAL EXAMINATION: VITAL SIGNS: Please see below. GENERAL: [Pleasant female, sitting up at the side of the bed in chair eating lunch, no acute distress. Alert and oriented to person place and time.] LABORATORY DATA, IMAGING STUDIES, MICROBIOLOGY: Please see below. ASSESSMENT AND PLAN: This is an 84-year-old female with: PROBLEMS: 1. Liver masses: Laboratory data and imaging were reviewed in detail with the patient. The patient's daughter Leeann was also called to review results at [phone]. CT imaging of the chest does show multiple lung nodules including one that appears to be dominant in the right upper lobe. The patient could have metastatic lung cancer. Biopsy results are pending. We will follow-up on these. Again, this is a very difficult age given the patient's age and frail nature. The patient is forgetful but does appear to be understanding this situation. I did discuss with the patient and her daughter that this is a cancer that has spread to multiple organs. As a result, any form of treatment would not be curative. The goal of treatment would be to improve the patient's symptoms and prolong life. As a result, it does not make sense to give the patient any treatment that would make her feel worse. We could evaluate the patient for immunotherapy pending review of PDL 1 status as this is usually better tolerated. The drawbacks included that the response rate is usually slower than traditional chemotherapy. However, this can only be considered once final pathology has returned. 2. Hyponatremia: Sodium has improved a small amount to 124. Management per primary team. Hyponatremia may be perineoplastic in nature. 3. Pain secondary to malignancy: The patient is experiencing right upper quadrant pain which is likely secondary to malignancy. She is receiving morphine as needed. 4. Normocytic anemia: Will order iron studies, vitamin B12 level, and folate level for further evaluation. DISPOSITION: Per primary team. Thank you so very much for this consult. Please call with further questions. VS, I&O, 24H, Fishbone Vital Signs/I&O Vital Signs Date Time Temp Pulse Resp B/P (MAP) Pulse Ox O2 Delivery O2 Flow Rate FiO2 04/12/20 14:00 98.2 80 18 127/71 (89) 91 Nasal Cannula 1.0 I&O- Last 24 Hours up to 6 AM 04/12/20 06:00 Intake Total 2295 ml Output Total 475 ml Balance 1820 ml Laboratory Data 24H LABS Laboratory Tests 2 04/12/20 05:36: Nucleated Red Blood Cells % (auto) 0.0, Anion Gap 8, Glomerular Filtration Rate 52.3, Calcium Level 8.0L, Magnesium Level 1.5L, Total Bilirubin 0.7, Aspartate Amino Transf (AST/SGOT) 79H, Alanine Aminotransferase (ALT/SGPT) 54, Alkaline Phosphatase 230H, Total Protein 5.7L, Albumin 2.8L, Albumin/Globulin Ratio 1.0L CBC/BMP Laboratory Tests 04/12/20 05:36 HILLARY LAMB MD April 12, 2020 17:44
[2020-04-12] MEDS: MAALOX 30 ML SUSP *UDC PO PRN (19:00)
[2020-04-12 19:39] LABS: CALCIUM LEVEL 8.1 MG/DL (8.8-10.2); CREATININE FOR GFR 1.16 MG/DL (0.55-1.30); GLOMERULAR FILTRATION RATE 47.2 (>32); POTASSIUM SERUM 4.4 MEQ/L (3.5-5.1); URIC ACID 5.3 MG/DL (2.6-6.0)
[2020-04-12 19:44] LABS: FOLATE 17.1 NG/ML (>5.4)
[2020-04-12] MEDS ORDERED: NS 1,000 ML IV SCH (20:15)
[2020-04-12] MEDS: SODIUM CHLORIDE 1 GM TAB PO SCH (20:41)
--- NOTE | 2020-04-12 21:17 | IPNPDOC ---
Text Note Date of Service The patient was seen on 04/12/20. NOTE Subjective: Complains of right upper quadrant dull aching pain and also compl ains of indigestion and feels like she is having some reflux with some intermittent nausea. No fever or chills. Physical Exam: Vitals: As below General Exam: Positive: Alert, Cooperative, no acute distress. Eye Exam: Positive: PERRLA, Conjunctiva & lids normal ENT Exam: Positive: Atraumatic, Mucous membr. moist/pink Neck Exam: Positive: Supple Chest Exam: Positive: Clear to auscultation, Normal air movement Heart Exam: Positive: Rate Normal, Normal S1, Normal S2, no rub , murmur or gallop Abdomen Exam: Positive: Normal bowel sounds, tenderness in the right upper quadrant and epigastrium Extremity Exam: Positive: Normal pulses, No edema Skin Exam: Positive: Nl turgor and temperature Neuro Exam: Positive: Strength at 5/5 X4 ext, Cranial Nerves 3-12 NL Psych Exam: Positive: Mood NL, Oriented x 3 Labs and radiology: reviewed. Assessment and plan: 84 years old white female past medical history of hypertension, arthritis, hyperlipidemia, chronic back pain presented with chief complaint of a persistent vomiting since last night but patient has also explained that she lost 8-10 pounds in last 1 month and feeling tired, fatigue and a dull aching right upper abdominal pain. CT of the abdomen and pelvis shows liver studded with innumerable hypodense masses, consistent with metastatic liver disease. Also, lung metastases were observed on CT chest. 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 Could be from Lung has a dominant mass in the right upper lobe. does also have elevated CEA so colon is also possible s/p liver mass biopsy appreciate Oncology Input. Hyponatremia with elevated Uric acid, improved slightly with NS. Sodium dropped after stopping NS So may have some intravascular depletion also. Ordered urine osmolality and urine sodium. May also have SIADH with the underlying malignancy will restart NS and will give salt tabs will get BMP at midnight. Hypomagnesemia replaced. HTN (hypertension) amlodipine and metoprolol continued stopped losartan. Normocytic anemia due to chronic disease normal folate , vit B12 and ferrtin levels GERD PPI, Sucralfate, maloox RUQ pain from metastatic disease to liver will give norco. Hyperlipidemia statin Kidney stones right and diverticulosis no issues at this point Mild cognitive impairment likely due to age related dementia difficulty in remembering things and grasping the disease process needing to be explained multiple times. VS,Fishbone, I+O VS, Fishbone, I+O Laboratory Tests 04/12/20 05:36 04/12/20 18:34 Vital Signs Date Time Temp Pulse Resp B/P (MAP) Pulse Ox O2 Delivery O2 Flow Rate FiO2 04/12/20 20:43 74 119/66 04/12/20 14:00 98.2 18 91 Nasal Cannula 1.0 I&O- Last 24 Hours up to 6 AM 04/12/20 06:59 Intake Total 1795 ml Output Total 475 ml Balance 1320 ml DARCI ORTEZ MD April 12, 2020 21:17
[2020-04-12] MEDS: ONDANSETRON 4MG/2ML VIAL IV PRN (21:29)
[2020-04-12 22:00] VITALS: BP_SYST 122; BP_SYST 125; BP_DIAS 60; BP_DIAS 70
[2020-04-12 23:58] LABS: OSMOLALITY URINE 321 MOSM/KG (500-800)
[2020-04-13 00:11] LABS: SODIUM,RANDOM URINE 33 MEQ/L
[2020-04-13 00:18] LABS: CREATININE FOR GFR 1.04 MG/DL (0.55-1.30); GLOMERULAR FILTRATION RATE 53.5 (>32); POTASSIUM SERUM 4.4 MEQ/L (3.5-5.1)
[2020-04-13 06:00] VITALS: BP 125/69
[2020-04-13 06:27] LABS: HEMATOCRIT 23.7 % (36.0-47.0); MEAN CORPUSCULAR HEMOGLOBIN 30.4 pg (27.0-33.0); MEAN CORPUSCULAR HGB CONC 33.8 g/dl (32.0-36.5); MEAN CORPUSCULAR VOLUME 90.1 fl (80.0-96.0); MONO % 10.6 % (0.0-5.0); NEUTROPHILS % 67.8 % (36.0-66.0); PLATELET COUNT, AUTOMATED 152 10^3/uL (150-450); RED BLOOD COUNT 2.63 10^6/uL (4.00-5.40)
[2020-04-13 06:28] LABS: BASO # 0.1 10^3/uL (0.0-0.2); BASO % 0.8 % (0.0-1.0); EOS # 0.1 10^3/uL (0.0-0.5); LYMPH # 1.1 10^3/uL (1.5-5.0); MONO # 0.6 10^3/uL (0.0-0.8); NEUTROPHILS # 4.1 10^3/uL (1.5-8.5)
[2020-04-13 06:55] LABS: CALCIUM LEVEL 7.8 MG/DL (8.8-10.2); PERCENT SATURATION 13.9 % (13.2-45.0); POTASSIUM SERUM 4.9 MEQ/L (3.5-5.1)
[2020-04-13] MEDS: SUCRALFATE 1 GM TAB PO SCH ×2 (08:57→20:35)
[2020-04-13] MEDS: MAGNESIUM OXIDE 400 MG TAB (MAG-OX) PO SCH ×2 (08:58→20:43)
[2020-04-13] MEDS: ATORVASTATIN 20 MG TAB PO SCH (08:58)
[2020-04-13] MEDS: SODIUM CHLORIDE 1 GM TAB PO SCH ×4 (08:58→20:35)
[2020-04-13] MEDS: POTASSIUM CHLORIDE 10 MEQ SR TABLET PO SCH ×2 (08:58→20:35)
[2020-04-13] MEDS: NORCO, ANEXSIA 5/325MG TABLET (HYDROcodone/ACETAMINOPHEN) PO SCH ×2 (08:59→20:36)
[2020-04-13] MEDS: busPIRone 5 MG TAB PO SCH ×2 (08:59→20:35)
[2020-04-13] MEDS: PANTOPRAZOLE 40MG TAB (PROTONIX) PO SCH (08:59)
[2020-04-13] MEDS: ESTRADIOL PO SCH (09:00)
[2020-04-13] MEDS: METOPROLOL SUCC (TopROL XL) 50MG **XL** TAB PO SCH (09:02)
[2020-04-13] MEDS: ACETAMINOPHEN TAB 650MG DOSE (2X325MG) PO PRN ×2 (11:20→19:42)
[2020-04-13] MEDS: MORPHINE 4 MG/ML 1ML VIAL/SYRINGE (J2270) IV PRN ×3 (12:01→22:53)
--- NOTE | 2020-04-13 12:05 | IPNPDOC ---
Text Note Date of Service The patient was seen on 04/13/20. NOTE Subjective: Patient is pleasantly confused. She is asking me about her kidney stone whether it has been fixed. When i reminded her that it was last year and that now she was in the hospital because of spots on liver she said "Oh they did mention it before". But then again she is asking if her right upper quadrant is hurting because of the stone. Even with repeated reminding she keeps on forgetting and seems unable to comprehend her diagnosis. She at one point asked if we could fix her liver. She was sitting up in bed eating breakfast. Says her abdomen does not hurt her that much today. Said slept well. Tried calling Daughter Leeann twice, no answer on the phone number in her chart. Spoke with grandpanda Rai and updated him on the current status of the patient. He was asking if she will be going into hospice. I told him that it is going to be their decision as next of kin as the patient cannot decide for herself as she does not even comprehend the disease. He said all decisions will have to go through Leeann. She is at an appointment today so i could not reach her over the phone. Physical Exam: Vitals: As below General Exam: Positive: Alert, Cooperative, no acute distress. Very poor short term memory. Eye Exam: Positive: PERRLA, Conjunctiva & lids normal ENT Exam: Positive: Atraumatic, Mucous membr. moist/pink Neck Exam: Positive: Supple Chest Exam: Positive: Clear to auscultation, Normal air movement Heart Exam: Positive: Rate Normal, Normal S1, Normal S2, no rub , murmur or gallop Abdomen Exam: Positive: Normal bowel sounds, tenderness in the right upper quadrant and epigastrium Extremity Exam: Positive: Normal pulses, No edema Skin Exam: Positive: Nl turgor and temperature Neuro Exam: Positive: Strength at 5/5 X4 ext, Cranial Nerves 3-12 NL Psych Exam: Positive: Mood NL, Oriented x 3 Labs and radiology: reviewed. Assessment and plan: 84 years old white female past medical history of hypertension, arthritis, hyperlipidemia, chronic back pain presented with chief complaint of a persistent vomiting since last night but patient has also explained that she lost 8-10 pounds in last 1 month and feeling tired, fatigue and a dull aching right upper abdominal pain. CT of the abdomen and pelvis shows liver studded with innumerable hypodense masses, consistent with metastatic liver disease. Also, lung metastases were observed on CT chest. 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 Could be from Lung has a dominant mass in the right upper lobe. does also have elevated CEA so colon is also possible s/p liver mass biopsy appreciate Oncology Input. Hyponatremia with elevated Uric acid, improved slightly with NS. Sodium dropped after stopping NS So may have some intravascular depletion also. Ordered urine osmolality and urine sodium. May also have SIADH with the underlying malignancy elevated serum uric acid continue salt tabs. IVF stopped appreciate nephrology input. Acute on Chronic Anemia normal folate , vit B12 and ferritin levels, no overt bleeding will get CT abd and pelvis to rule out any hematoma post biopsy. Hypomagnesemia replaced. HTN (hypertension) amlodipine and metoprolol continued stopped losartan. GERD PPI, Sucralfate, maalox RUQ pain from metastatic disease to liver will give norco. Hyperlipidemia statin Kidney stones right and diverticulosis no issues at this point Mild cognitive impairment likely due to age related dementia difficulty in remembering things and grasping the disease process needing to be explained multiple times with poor recall. VS,Fishbone, I+O VS, Fishbone, I+O Laboratory Tests 04/12/20 18:34 04/12/20 23:42 04/13/20 05:37 Vital Signs Date Time Temp Pulse Resp B/P (MAP) Pulse Ox O2 Delivery O2 Flow Rate FiO2 04/13/20 09:30 16 04/13/20 09:12 1.0 04/13/20 09:02 86 149/71 04/13/20 06:00 99.0 97 Nasal Cannula I&O- Last 24 Hours up to 6 AM 04/13/20 06:00 Intake Total 2635 ml Output Total 500 ml Balance 2135 ml DARCI ORTEZ MD April 13, 2020 11:55
[2020-04-13 14:00] VITALS: BP 148/69
[2020-04-13 14:17] LABS: HEMATOCRIT 26.3 % (36.0-47.0); HEMOGLOBIN 8.8 g/dl (12.0-15.5); MEAN CORPUSCULAR HEMOGLOBIN 30.1 pg (27.0-33.0); MEAN CORPUSCULAR HGB CONC 33.5 g/dl (32.0-36.5); MEAN CORPUSCULAR VOLUME 90.1 fl (80.0-96.0); PLATELET COUNT, AUTOMATED 184 10^3/uL (150-450); RED BLOOD COUNT 2.92 10^6/uL (4.00-5.40); WHITE BLOOD COUNT 7.4 10^3/uL (4.0-10.0)
[2020-04-13] MEDS: ONDANSETRON 4MG/2ML VIAL IV PRN ×2 (16:17→20:36)
--- NOTE | 2020-04-13 16:20 | REP ---
CT ABDOMEN AND PELVIS WITHOUT CONTRAST: CT ABDOMEN AND PELVIS PERFORMED WITHOUT ORAL OR IV CONTRAST: Sagittal and coronal reconstruction images are performed. In the visualized lung bases are moderate fibrotic changes. Left lower lobe nodule is again seen. Once again, there are diffuse metastatic lesions seen throughout the liver. The spleen is normal in size. The adrenal glands are unremarkable. The pancreas is grossly unremarkable. There is left renal atrophy. Small subcentimeter calcifications are seen in the right renal pelvis. There is no hydronephrosis. There is moderate atherosclerotic calcification of the abdominal aorta without aneurysm. No periaortic adenopathy is seen. There is no free air. The patient has had prior cholecystectomy. There is no perihepatic hematoma. However, there is moderate amount of blood in the pelvis. There is sigmoid diverticulosis. Urinary bladder is mildly distended and grossly unremarkable. There are degenerative changes of the spine. IMPRESSION: Moderate blood in the pelvis. No perihepatic hematoma. Multiple innumerable liver metastases. Electronically Signed by Atul Rosa MD 04/13/2020 04:49 P
[2020-04-13] MEDS ORDERED: KETOROLAC 30 MG/ML 1ML VIAL IV ONE (17:45)
[2020-04-13] MEDS: MIRALAX *UNIT DOSE* 17GM PACKET PO PRN (19:43)
[2020-04-13 22:00] VITALS: BP 146/70
[2020-04-13 22:13] LABS: HEMATOCRIT 25.7 % (36.0-47.0); HEMOGLOBIN 8.5 g/dl (12.0-15.5)
[2020-04-14] MEDS: ACETAMINOPHEN TAB 650MG DOSE (2X325MG) PO PRN (02:51)
[2020-04-14] MEDS: ONDANSETRON 4MG/2ML VIAL IV PRN ×3 (05:08→18:43)
[2020-04-14 06:00] VITALS: BP 148/79
[2020-04-14 06:22] LABS: BASO # 0.1 10^3/uL (0.0-0.2); EOS # 0.1 10^3/uL (0.0-0.5); EOS % 1.5 % (0.0-3.0); HEMATOCRIT 24.1 % (36.0-47.0); LYMPH # 1.2 10^3/uL (1.5-5.0); LYMPH % 20.3 % (24.0-44.0); MEAN CORPUSCULAR HEMOGLOBIN 29.6 pg (27.0-33.0); MEAN CORPUSCULAR HGB CONC 33.2 g/dl (32.0-36.5); MEAN CORPUSCULAR VOLUME 89.3 fl (80.0-96.0); MONO # 0.5 10^3/uL (0.0-0.8); MONO % 8.1 % (0.0-5.0); NEUTROPHILS % 67.9 % (36.0-66.0); PLATELET COUNT, AUTOMATED 178 10^3/uL (150-450); WHITE BLOOD COUNT 5.8 10^3/uL (4.0-10.0)
--- NOTE | 2020-04-14 06:43 | CR ---
DATE OF CONSULTATION: 04/13/2020 NEPHROLOGY CONSULTATION FOR: Ana Kenney MD REASON FOR CONSULTATION: Hyponatremia. HISTORY OF PRESENT ILLNESS: Ms. Zhou is an 84-year-old female who was admitted to [facility] on 04/11/2020 due to intractable vomiting and hyponatremia. Her sodium level was down to 120. She has been diagnosed with metastatic disease as her initial CT scan of abdomen and pelvis showed that her liver was studded with metastatic disease. She was also found to have some nodules in the base of her lungs, and a CT scan of chest was done, which showed a large nodule in her right upper lobe and multiple nodules in both lungs. She already had a liver biopsy done for diagnosis of metastatic disease. In the meantime, her hyponatremia persists, due to which a nephrology consultation was requested. She was also incidentally noted to have a right kidney nonobstructing stone. PAST MEDICAL AND SURGICAL HISTORY: Significant for: 1. Hypertension. 2. Back pain. 3. Hyperlipidemia. 4. Gastroesophageal reflux disease. Past surgical history is significant for hysterectomy, cholecystectomy, cardiac ablation, rotator cuff repair, (C) section, dilation and curettage (D and C), and sinus surgery. FAMILY HISTORY: Father at age 54 with throat cancer. Mother at age 84 with hypertension, diabetes, cardiac disease. One sister has breast cancer, and she at age 78. MEDICATIONS: Her home medications include: - amlodipine 2.5 mg daily - atorvastatin 40 mg daily - buspirone 5 mg twice a day - Plavix 75 mg daily - furosemide 40 mg daily - losartan 25 mg daily - metoprolol 50 mg daily - Bystolic 10 mg daily - omeprazole 10 mg daily - potassium chloride 10 mEq twice a day - Carafate 1 gram twice a day - pantoprazole 40 mg daily ALLERGIES: She has no known drug allergies. REVIEW OF SYSTEMS: Patient has complained of pain in her right upper quadrant and right side of back. She denies any fever or chills. She had recurrent vomiting at home, due to which she was brought to the hospital. However, since admission, her vomiting has improved. She denies any dyspnea, chest pain, fever, or chills. Ears, nose, and throat are unremarkable. Cardiovascular system negative for chest pain, leg edema, or dyspnea. Respiratory system is negative for hemoptysis or pleuritic type of chest pain. Multiple pulmonary nodules are noticed on the CT scan. Gastrointestinal (GI) system is significant for metastatic disease in the liver. She had vomiting, which has already improved. She denies any diarrhea or rectal bleeding. She does have pain in her right upper quadrant. Genitourinary () system is significant for nonobstructing right renal stone. Patient states that she was scheduled for stone removal on 04/15/2020. Musculoskeletal system is negative for leg edema or significant arthritis. Endocrine system negative for diabetes or thyroid problems. Hematological system is negative for any long-term anticoagulation, easy bruising, or excessive bleeding. Psychosocial system significant for mild depression. PHYSICAL EXAM: Elderly lady laying in the bed without any acute distress. Temperature is 99 degrees Fahrenheit, heart rate 86 per minute, and respiratory rate 16 per minute. Blood pressure 149/70 mmHg and oxygen saturation 97%. Head is atraumatic. Neck supple and without jugular venous distention (JVD) or thyroid enlargement. There is no oral thrush or ulcers. Pupils are equal and reactive to light, and sclerae are anicteric. Heart sounds are regular, and lungs sound clear to auscultation. Abdomen soft. Right-sided upper quadrant tenderness is noticed. Bowel sounds are present. Extremities have no cyanosis or clubbing. Neurologically, she is awake and without a focal deficit. She seems somewhat confused at times and disoriented. LAB DATA: Her admission hemoglobin was 13.4 and hematocrit 38.4. Today, her hemoglobin is down to 8 and hematocrit 23.7. WBC count 6.0. Admission sodium was 120 and potassium 3.7. Yesterday, her sodium was 121 and today is 124. Potassium level is 4.9. BUN 11 and creatinine 1.0. Glucose 87 and calcium 7.8. Iron level is 42 and saturation 13.9%. PROBLEMS: 1. Hyponatremia, probably multifactorial. Patient has significant metastatic disease and also had recurrent vomiting prior to admission. She was on a diuretic, which has now been stopped. Her vomiting has also improved. However, she has significant metastatic disease burden. I feel that lung and liver metastases are probably contributing to her hyponatremia. I am going to stop her intravenous (IV) fluid and increase her oral sodium chloride tablets to 2 grams three times a day. Her electrolytes should be checked on daily basis. 2. Anemia. Patient has significant anemia, worsening since admission. She had a liver biopsy, and I am concerned about possibility of blood loss. I would recommend to repeat a CT scan of her abdomen for possible bleeding from the liver biopsy site. 3. Metastatic disease. Patient seems to have significant metastatic disease burden with her advanced age. She has already been seen by oncology, and results of her liver biopsy are pending. Thank you for involving me in the care of Ms. Zhou.
[2020-04-14 06:53] LABS: BLOOD UREA NITROGEN 9 MG/DL (7-18); CARBON DIOXIDE LEVEL 27 MEQ/L (21-32); CHLORIDE LEVEL 91 MEQ/L (98-107); CREATININE FOR GFR 0.86 MG/DL (0.55-1.30); GLOMERULAR FILTRATION RATE > 60.0 (>32); GLUCOSE, FASTING 88 MG/DL (70-100); POTASSIUM SERUM 4.7 MEQ/L (3.5-5.1); SODIUM LEVEL 125 MEQ/L (136-145)
[2020-04-14] MEDS: SUCRALFATE 1 GM TAB PO SCH ×2 (08:32→20:33)
[2020-04-14] MEDS: ATORVASTATIN 20 MG TAB PO SCH (08:32)
[2020-04-14] MEDS: MAGNESIUM OXIDE 400 MG TAB (MAG-OX) PO SCH ×2 (08:32→20:32)
[2020-04-14] MEDS: PANTOPRAZOLE 40MG TAB (PROTONIX) PO SCH (08:32)
[2020-04-14] MEDS: ESTRADIOL PO SCH (08:32)
[2020-04-14] MEDS: SODIUM CHLORIDE 1 GM TAB PO SCH ×3 (08:32→20:33)
[2020-04-14] MEDS: NORCO, ANEXSIA 5/325MG TABLET (HYDROcodone/ACETAMINOPHEN) PO SCH ×2 (08:33→22:11)
[2020-04-14] MEDS: POTASSIUM CHLORIDE 10 MEQ SR TABLET PO SCH ×2 (08:33→20:33)
[2020-04-14] MEDS: busPIRone 5 MG TAB PO SCH ×2 (08:33→20:33)
[2020-04-14] MEDS: METOPROLOL SUCC (TopROL XL) 50MG **XL** TAB PO SCH (08:34)
[2020-04-14] MEDS ORDERED: MIRALAX *UNIT DOSE* 17GM PACKET PO PRN (10:00)
[2020-04-14] MEDS: SENOKOT S TAB PO SCH ×2 (10:20→20:33)
[2020-04-14] MEDS: MORPHINE 4 MG/ML 1ML VIAL/SYRINGE (J2270) IV PRN ×2 (12:44→20:35)
[2020-04-14 14:00] VITALS: BP 131/70
[2020-04-14 14:09] LABS: HEMATOCRIT 25.8 % (36.0-47.0); HEMOGLOBIN 8.6 g/dl (12.0-15.5)
--- NOTE | 2020-04-14 14:56 | IPNPDOC ---
Text Note Date of Service The patient was seen on 04/14/20. NOTE Subjective: Patient is anxious and emotional today. Says " I have this thing and i am going to soon i just want to go home and there. Why do i have to wait for [facility] test report if i am going to soon. Just let me go home tomorrow". She could not tell me what the thing is but was getting very upset and emotional. Physical Exam: Vitals: As below General Exam: Positive: Alert, Cooperative, no acute distress. Very poor short term memory. Eye Exam: Positive: PERRLA, Conjunctiva & lids normal ENT Exam: Positive: Atraumatic, Mucous membr. moist/pink Neck Exam: Positive: Supple Chest Exam: Positive: Clear to auscultation, Normal air movement Heart Exam: Positive: Rate Normal, Normal S1, Normal S2, no rub , murmur or gallop Abdomen Exam: Positive: Normal bowel sounds, tenderness in the right upper quadrant. Extremity Exam: Positive: Normal pulses, No edema Skin Exam: Positive: Nl turgor and temperature, bruises in different parts. Neuro Exam: Positive: Strength at 5/5 X4 ext, Cranial Nerves 3-12 NL Psych Exam: Positive: Mood NL, Oriented x 3 Labs and radiology: reviewed. Assessment and plan: 84 years old white female past medical history of h ypertension, arthritis, hyperlipidemia, chronic back pain presented with chief complaint of a persistent vomiting since last night but patient has also explained that she lost 8-10 pounds in last 1 month and feeling tired, fatigue and a dull aching right upper abdominal pain. CT of the abdomen and pelvis shows liver studded with innumerable hypodense masses, consistent with metastatic liver disease. Also, lung metastases were observed on CT chest. 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 appreciate Oncology Input. 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 appreciate nephrology input. Acute on Chronic Anemia normal folate , vit B12 and ferritin levels, no overt bleeding will get CT abd and pelvis showed some blood in the pelvis about 150 to 200cc HH remains stable so patient probably bled during the biopsy which has now spontaneously stopped will transfuse if drops below 8.0 Hypomagnesemia replaced. HTN (hypertension) amlodipine and metoprolol continued stopped losartan. GERD PPI, Sucralfate, maalox RUQ pain from metastatic disease to liver will give norco. Hyperlipidemia statin Kidney stones right and diverticulosis no issues at this point Mild cognitive impairment likely due to age related dementia difficulty in remembering things and grasping the disease process needing to be explained multiple times with poor recall. VS,Fishbone, I+O VS, Fishbone, I+O Laboratory Tests 04/13/20 22:06 04/14/20 05:35 04/14/20 13:55 Vital Signs Date Time Temp Pulse Resp B/P (MAP) Pulse Ox O2 Delivery O2 Flow Rate FiO2 04/14/20 12:54 17 04/14/20 08:34 101 146/79 04/14/20 06:00 97.8 99 Room Air 04/13/20 21:00 3.0 I&O- Last 24 Hours up to 6 AM 04/14/20 07:00 Intake Total 1490 ml Output Total 1100 ml Balance 390 ml DARCI ORTEZ MD April 14, 2020 14:56
--- NOTE | 2020-04-14 17:56 | IPNPDOC ---
Date Seen The patient was seen on 04/14/20. Progress Note 1. Extensive stage small cell cancer, likely lung primary - CT abd/pelvis wo contrast, 04/11/20: Liver studded with diffuse innumerable hypodense masses suggestive of metastatic disease. Nonobstructing right nephrolithiasis. Severe sigmoid colon diverticulosis. Right and left lower lobe lung nodules with the largest measuring 9 mm in the left lung base. Chronic interstitial lung changes in the partially imaged lung bases. - Biopsy of liver mass, 04/11/20: Metastatic small cell carcinoma. Tumor cell positive for CD 56, synaptophysis, TTF1, and negative for chromogranin and CD45. The possible primary site is lung. - CEA, 04/11/20: Elevated at 533 - CT chest without contrast, 04/12/20: Multiple lung nodules are noted. A dominant lobulated irregular nodule or soft tissue density is seen in the anterior segment of the right upper lobe measuring 3.8 x 2 cm. Mediastinal adenopathy and right hilar is present. Diffuse liver metastasis noted. SUBJECTIVE: Patient is an 84-year-old female presenting with worsening abdominal pain. She notes that she is tired of being in the hospital. She continues to have right upper quadrant pain. She is in bed currently. She denies fevers, chills, night sweats. OBJECTIVE VITAL SIGNS: Please see below. GENERAL APPEARANCE: Alert, cooperative, thin female HEENT: Extraocular muscles intact. Conjunctivae and lids normal. RESPIRATORY: The auscultation bilaterally with no increased work of breathing CARDIOVASCULAR: Regular rate and rhythm with normal S1 and S2 ABDOMEN: Tenderness to palpation in right upper quadrant. No rebound or guarding. Normoactive bowel sounds EXTREMITIES: Cyanosis, clubbing, or edema NEUROLOGICAL: Alert and oriented to person, place, and time. Cranial nerves grossly intact PSYCHIATRIC: Normal mood LABORATORY DATA, IMAGING STUDIES, MICROBIOLOGY: Please see below. ASSESSMENT AND PLAN: PROBLEMS: 1. Extensive stage small cell cancer, likely lung primary: Laboratory data, imaging, and pathology results were reviewed in detail with the patient and her family. Initially, I did call the patient's children Leeann and Marcus to discuss all results. I did then go see the patient and called her children on the phone while we discussed results. The patient has an aggressive cancer that has metastasized. We did discuss that we could offer chemotherapy, but the goals of chemotherapy would be to help improve symptoms (namely right upper quadrant pain), resolve hyponatremia which is secondary to malignancy, and prolong life. We did discuss that if we were to do treatment, I would recommend checking an MRI brain with and without contrast to evaluate for brain metastasis is small cell cancer is known to commonly metastasize to the brain. We did discuss that chemotherapy could have potential side effects which include, but are not limited to, nausea, vomiting, increasing weakness, and increased risk of infection due to decreased white blood cell count. We did discuss that without chemotherapy, I would recommend hospice as the patient could have less than 3 months with this. The patient voiced understanding with regards to our discussion. She was very cl ear that she did not wish to have any chemotherapy or treatment whatsoever. She mentioned this several times. Her children then voiced understanding and agreement with the patient. She wishes to enjoy the remainder of her time with her children and does not wish to pursue further chemotherapy. She has the goal of limiting further need for hospital stays. I would recommend hospice referral and arrangements prior to discharge. This was discussed with the patient's nurse. I did try to call the patient's attending physician but was unable to reach her. 2. Hyponatremia: This is secondary to malignancy. Small cell cancer is commonly known to lead to hyponatremia. Nephrology has been consult today. 3. Pain secondary to malignancy: The patient is experiencing right upper quadrant pain which is likely secondary to malignancy. She is receiving [place] as needed while hospitalized. She will need this at discharge to help manage her pain at home. 4. Normocytic anemia: Laboratory evaluation shows that this is anemia of chronic disease. DISPOSITION: Discharge home with hospice. From an oncology standpoint, the patient can be discharged home when able per primary team. Oncology will sign off at this time. Please let us know if we can be of further assistance. Thank you so very much for this consult. Please call with questions. VS, I&O, 24H, Fishbone Vital Signs/I&O Vital Signs Date Time Temp Pulse Resp B/P (MAP) Pulse Ox O2 Delivery O2 Flow Rate FiO2 04/14/20 14:00 97.9 78 18 131/70 (90) 93 Nasal Cannula 1.0 I&O- Last 24 Hours up to 6 AM 04/14/20 06:00 Intake Total 1490 ml Output Total 1100 ml Balance 390 ml Laboratory Data 24H LABS Laboratory Tests 2 04/14/20 05:35: Immature Granulocyte % (Auto) 1.2, Neutrophils (%) (Auto) 67.9H, Lymphocytes (%) (Auto) 20.3L, Monocytes (%) (Auto) 8.1H, Eosinophils (%) (Auto) 1.5, Basophils (%) (Auto) 1.0, Neutrophils # (Auto) 4.0, Lymphocytes # (Auto) 1.2L, Monocytes # (Auto) 0.5, Eosinophils # (Auto) 0.1, Basophils # (Auto) 0.1, Nucleated Red Blood Cells % (auto) 0.0, Anion Gap 7L, Glomerular Filtration Rate > 60.0, Calcium Level 8.0L CBC/BMP Laboratory Tests 04/13/20 22:06 04/14/20 05:35 04/14/20 13:55 HILLARY LAMB MD April 14, 2020 17:56
--- NOTE | 2020-04-14 19:25 | IPN ---
DATE: 04/14/2020 Mrs. Zhou is seen this afternoon on her bedside. She is still complaining of right upper quadrant abdominal pain. She did have a CT scan of abdomen and pelvis done yesterday which did show some blood in the pelvis and also again showed her liver studded with metastatic lesions. She does have three stones in her right kidney, however, they are all nonobstructing. The patient is just feeling weak and not eating much. PHYSICAL EXAMINATION: Temperature 97.8 degrees Fahrenheit, heart rate 82 per minute and respiratory rate 18 per minute. Blood pressure 146/79 mmHg, and oxygen saturation 99% on room air. Head is atraumatic. Neck: Supple and without jugular venous distention (JVD) or thyroid enlargement. Heart sounds are irregular in rhythm. Lungs sound clear to auscultation. Abdomen is soft with tenderness and fullness in the right upper quadrant. Bowel sounds are present. Extremities: Without any cyanosis or clubbing. Neurologically, she is without a focal deficit. She is fixated on her right kidney stones and keeps asking the same questions again and again about her kidney stones. Her daughter was on the phone at the time of my visit, and I did talk to her and explain to her about her metastatic disease and poor prognosis. She did have a liver biopsy done, which has now confirmed metastatic small cell carcinoma, so possible primary site is in the lung while she has widespread mass in the liver and probably in other organs. CT scan of her head has not been done as yet. Today's labs show WBC count 5.8, hemoglobin 8.0 and hematocrit 24.1. Platelets 178. Sodium 125, potassium 4.7, CO2 of 27, BUN 9 and creatinine 0.86. Glucose is 88 and calcium 8.0. PROBLEMS: 1. Hyponatremia. Gradual improvement in the sodium level is noticed. 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 She remains on oral fluid restriction and oral sodium chloride tablets. 2. Metastatic small cell carcinoma. Her prognosis remains poor in view of her advanced age. I explained to the patient and her daughter on the phone about her condition. 3. Anemia, acute blood loss anemia related to liver biopsy and possible bleeding. She also possibly had dehydration at the time of admission due to recurrent vomiting and probably her admission hemoglobin of 13 was a result of hemoconcentration. At this point, there is no emergent indication for a transfusion.
[2020-04-14 22:00] VITALS: BP 145/74
[2020-04-14 22:05] LABS: HEMATOCRIT 24.4 % (36.0-47.0); HEMOGLOBIN 8.2 g/dl (12.0-15.5)
[2020-04-14] MEDS ORDERED: NORCO, ANEXSIA 5/325MG TABLET (HYDROcodone/ACETAMINOPHEN) PO ONE (23:45)
[2020-04-15] MEDS: ONDANSETRON 4MG/2ML VIAL IV PRN ×2 (04:28→08:46)
[2020-04-15 06:00] VITALS: BP 127/59
[2020-04-15 06:15] LABS: BASO % 0.6 % (0.0-1.0); EOS # 0.1 10^3/uL (0.0-0.5); EOS % 1.2 % (0.0-3.0); HEMATOCRIT 23.5 % (36.0-47.0); HEMOGLOBIN 7.8 g/dl (12.0-15.5); LYMPH # 0.9 10^3/uL (1.5-5.0); LYMPH % 13.9 % (24.0-44.0); MEAN CORPUSCULAR HGB CONC 33.2 g/dl (32.0-36.5); MEAN CORPUSCULAR VOLUME 90.4 fl (80.0-96.0); MONO # 0.6 10^3/uL (0.0-0.8); MONO % 8.4 % (0.0-5.0); NEUTROPHILS % 75.4 % (36.0-66.0); PLATELET COUNT, AUTOMATED 169 10^3/uL (150-450); WHITE BLOOD COUNT 6.6 10^3/uL (4.0-10.0)
[2020-04-15 06:54] LABS: BLOOD UREA NITROGEN 10 MG/DL (7-18); CALCIUM LEVEL 8.2 MG/DL (8.8-10.2); CARBON DIOXIDE LEVEL 26 MEQ/L (21-32); CHLORIDE LEVEL 91 MEQ/L (98-107); GLOMERULAR FILTRATION RATE > 60.0 (>32); GLUCOSE, FASTING 85 MG/DL (70-100); POTASSIUM SERUM 5.6 MEQ/L (3.5-5.1); SODIUM LEVEL 124 MEQ/L (136-145)
[2020-04-15] MEDS: MORPHINE 4 MG/ML 1ML VIAL/SYRINGE (J2270) IV PRN (07:34)
[2020-04-15] MEDS: MAALOX 30 ML SUSP *UDC PO PRN (07:34)
[2020-04-15] MEDS: MIRALAX *UNIT DOSE* 17GM PACKET PO PRN (07:40)
[2020-04-15] MEDS ORDERED: FUROSEMIDE 20MG/2ML VIAL (J1940) IV ONE (08:00)
[2020-04-15] MEDS: ESTRADIOL PO SCH (08:42)
[2020-04-15] MEDS: NORCO, ANEXSIA 5/325MG TABLET (HYDROcodone/ACETAMINOPHEN) PO SCH (08:43)
[2020-04-15] MEDS: MAGNESIUM OXIDE 400 MG TAB (MAG-OX) PO SCH (08:43)
[2020-04-15] MEDS: SODIUM CHLORIDE 1 GM TAB PO SCH ×2 (08:43→16:14)
[2020-04-15 08:44] VITALS: BP 143/74
[2020-04-15] MEDS: ATORVASTATIN 20 MG TAB PO SCH (08:44)
[2020-04-15] MEDS: SUCRALFATE 1 GM TAB PO SCH (08:44)
[2020-04-15] MEDS: PANTOPRAZOLE 40MG TAB (PROTONIX) PO SCH (08:44)
[2020-04-15] MEDS: SENOKOT S TAB PO SCH (08:44)
[2020-04-15] MEDS: busPIRone 5 MG TAB PO SCH (08:44)
[2020-04-15] MEDS: METOPROLOL SUCC (TopROL XL) 50MG **XL** TAB PO SCH (08:44)
[2020-04-15] MEDS ORDERED: SODI1TAB6 PO (10:49)
[2020-04-15] MEDS ORDERED: MORP20SO3 PO (10:50)
[2020-04-15] MEDS ORDERED: HYOS125TA PO (10:50)
[2020-04-15] MEDS ORDERED: LORA0.5T5 PO ×3 (10:50→10:59)
[2020-04-15] MEDS ORDERED: ATIV1TAB10 PO (11:03)
--- NOTE | 2020-04-15 16:30 | IPN ---
DATE: 04/15/2020 Mrs. Zhou is seen this morning on her bedside. She is at about her baseline mentation. Nursing staff report that she is going to be discharged to home with hospice today. Patient continues to have right upper quadrant pain and also reports constipation. She has no vomiting or dyspnea at present. On physical examination, temperature 96.5 degrees Fahrenheit, heart rate 84 per minute and respiratory rate 18 per minute. Blood pressure 143/74 mmHg and oxygen saturation 93% on room air. Head is atraumatic. Neck supple and jugular venous distention (JVD) minimally elevated. Heart sounds irregular and lungs with slightly diminished breath sounds with poor inspiratory effort. Abdomen is protuberant, soft and right upper quadrant tenderness is present. Neurologically, she is at about her baseline mentation without a focal deficit. Today's labs show WBC count 6.6, hemoglobin down to 7.8 and hematocrit 23.5. Sodium 124, potassium 5.6, BUN 18 and creatinine 0.9. PROBLEMS: 1. Hyponatremia. 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 Sodium now remains at 124 and 125. She is currently on oral sodium chloride tablets. Most likely reason for her hyponatremia is widespread metastatic small cell carcinoma. At this point, she will continue with current care. She is likely to go home with hospice today. 2. Hyperkalemia. She has been receiving potassium supplement, which I am going to stop. I am also giving her dose of Lasix 20 mg intravenously in order to optimize her volume status and try to improve her electrolytes. 3. Anemi. Most likely this is blood loss anemia. She is going home with hospice, so we will it as such. 4. Metastatic small cell carcinoma. Patient has widespread metastatic disease and is not a surgical candidate for chemo. I agree with hospice care.
--- NOTE | 2020-04-16 11:21 | DS.PDOC ---
Discharge Summary General Date of Admission April 11, 2020 at 07:47 Date of Discharge 04/15/20 Discharge Summary PROCEDURES PERFORMED DURING STAY: Liver biopsy DISCHARGE DIAGNOSES: Metastatic small cell cancer of the lung to liver Acute on chronic anemia Hyponatremia due to SIADH Post procedure bleed Hypertension Hypomagnesemia Kidney stones GERD, Cognitive impairment COMPLICATIONS/CHIEF COMPLAINT: Hyponatremia,Intractable Vomiting. HISTORY OF PRESENT ILLNESS: See history and physical HOSPITAL COURSE: 84 years old white female past medical history of hypertension, arthritis, hyperlipidemia, chronic back pain presented with chief complaint of a persistent vomiting since last night but patient has also explained that she lost 8-10 pounds in last 1 month and feeling tired, fatigue and a dull aching right upper abdominal pain. CT of the abdomen and pelvis shows liver studded with innumerable hypodense masses, consistent with metastatic liver disease. Also, lung metastases were observed on CT chest. 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 appreciate Oncology Input. 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 appreciate nephrology input. Acute on Chronic Anemia had initial dehydration so the Hb was higher . Her Hb is probably between 10 to 11. normal folate , vit B12 and ferritin levels will get CT abd and pelvis showed some blood in the pelvis about 150 to 200cc HH remains stable so patient probably bled during the biopsy which has now spontaneously stopped will transfuse if drops below 8.0 Hypomagnesemia replaced. HTN (hypertension) amlodipine and metoprolol continued stopped losartan. GERD Sucralfate Hyperlipidemia resolved Kidney stones right and diverticulosis no issues at this point Cognitive impairment likely due to age related dementia difficulty in remembering things and grasping the disease process needing to be explained multiple times with poor recall. DISCHARGE MEDICATIONS: Please see below. ALLERGIES: Please see below. PHYSICAL EXAMINATION ON DISCHARGE: VITAL SIGNS: Please see below. General Exam: Positive: Alert, Cooperative, no acute distress. Very poor short term memory. Eye Exam: Positive: PERRLA, Conjunctiva & lids normal ENT Exam: Positive: Atraumatic, Mucous membr. moist/pink Neck Exam: Positive: Supple Chest Exam: Positive: Clear to auscultation, Normal air movement Heart Exam: Positive: Rate Normal, Normal S1, Normal S2, no rub , murmur or gallop Abdomen Exam: Positive: Normal bowel sounds, tenderness in the right upper quadrant. Extremity Exam: Positive: Normal pulses, No edema Skin Exam: Positive: Nl turgor and temperature, bruises in different parts. Neuro Exam: Positive: Strength at 5/5 X4 ext, Cranial Nerves 3-12 NL Psych Exam: Positive: Mood NL, Oriented x 3 LABORATORY DATA: Please see below. ACTIVITY: [As tolerated]. DIET: As tolerated DISPOSITION: 50 [facility]ospice Home. DISCHARGE INSTRUCTIONS: follow up with Home hospice. DISCHARGE CONDITION: [Stable]. TIME SPENT ON DISCHARGE: 35 minutes. Vital Signs/I&Os Vital Signs Date Time Temp Pulse Resp B/P (MAP) Pulse Ox O2 Delivery O2 Flow Rate FiO2 04/15/20 09:13 17 04/15/20 09:00 3.0 04/15/20 08:44 84 143/74 04/15/20 06:00 96.5 93 Room Air I&O- Last 24 Hours up to 6 AM 04/16/20 05:59 Intake Total 1120 ml Output Total 1100 ml Balance 20 ml Discharge Medications Scheduled Amlodipine Besylate (Amlodipine Besylate) 2.5 Mg Tablet, 2.5 MG PO QHS, (Reported) Buspirone HCl (Buspirone HCl) 5 Mg Tablet, 5 MG PO BID, (Reported) Metoprolol Succinate (Metoprolol Succinate) 50 Mg Tab.er.24h, 50 MG PO DAILY, (Reported) Sodium Chloride (Sodium Chloride) 1 Gm Tablet, 2 GM PO BID Sucralfate (Sucralfate) 1 Gm Tablet, 1 GM PO BID, (Reported) Scheduled PRN Hyoscyamine Sulfate (Hyoscyamine Sulfate) 0.125 Mg Tab.subl, 0.125 MG PO Q4HP MS N for TERMINAL SECRETIONS Use sublingually if unable to swallow Lorazepam (Ativan) 0.5 Mg Tablet, 0.5 MG PO Q4HP PRN for ANXIETY/AGITATION Use sublingually if unable to swallow Morphine Sulfate (Morphine Sulfate) 100 Mg/5 Ml Solution, 0.25-1 ML PO Q2H PRN for PAIN OR DYSPNEA Use sublingually if unable to swallow Polyethylene Glycol 3350 (Miralax) 119 Gm Powder, 17 GM PO DAILY PRN for CONSTIPATION, (Reported) Allergies Coded Allergies: No Known Allergies (Verified , 03/01/19) DARCI ORTEZ MD April 16, 2020 11:21
== END 2020-04-15 17:04 | disposition hospice, home (50) | DRG 181 ==
LOC: M ED 03:50 → EDBD 03:50 → M ED INP 07:47 → ENRESERV 08:35 → M ED INP 09:45 → M MSPAV 10:32
PROVIDERS: ADMIT Internal Medicine; ATTEND Internal Medicine Nephrology
PROC: 0FB23ZX Excision of Left Lobe Liver, Percutaneous Approach, Diagnostic (ICD-10-PCS; principal; 2020-04-11 14:27)
DX: C34.11 Malignant neoplasm of upper lobe, right bronchus or lung (principal); E22.2 Syndrome of inappropriate secretion of antidiuretic hormone; C78.7 Secondary malignant neoplasm of liver and intrahepatic bile duct; J84.9 Interstitial pulmonary disease, unspecified; D62 Acute posthemorrhagic anemia; E78.5 Hyperlipidemia, unspecified; E87.5 Hyperkalemia; I10 Essential (primary) hypertension; K21.9 Gastro-esophageal reflux disease without esophagitis; Z66 Do not resuscitate; E83.42 Hypomagnesemia; G89.3 Neoplasm related pain (acute) (chronic); M19.90 Unspecified osteoarthritis, unspecified site; M54.9 Dorsalgia, unspecified; E86.0 Dehydration; F03.90 Unspecified dementia, unspecified severity, without behavioral disturbance, psychotic disturbance, mood disturbance, and anxiety; K57.30 Diverticulosis of large intestine without perforation or abscess without bleeding; Z79.01 Long term (current) use of anticoagulants; Z79.899 Other long term (current) drug therapy; Z90.49 Acquired absence of other specified parts of digestive tract; Z87.891 Personal history of nicotine dependence